=== PATIENT | female | born 1950 | race Caucasian/White ===

== ENCOUNTER 2019-12-01 00:30 | Outpatient (CLI) | payer OTHER, SELFPAY ==
--- NOTE | 2019-12-01 13:15 | DI.NM_ITS ---
APPROVED REPORT Exam: Pharmacologic Patient Location: Out-Patient Room/Bed: Stress Nurse: Elva Ramos RN BMI: 31.83 Baseline Rhythm: Sinus Bradycardia Indications: Dyspnea. Note patient is a poor historian. Medical History Medical History: GERD, Bleeding ulcers, rheumatoid arthritis. Cardiac Medications: Metoprolol succinate/ Toprol XL, Aspirin., Allergies: Levaquin, Penicillin. Cardiac Risk Factors: FHX of CAD, HTN Previous Cardiac Procedures: None Pretest Chest Pain Characteristics: None Exercise History: Sedentary Physical Disabilities: Legs Lung Sounds: Clear to auscultation Heart Sounds: Regular Stress Test Details Test: Pharmacologic stress testing performed using 0.4 mg of regadenoson per 5 mL given IV over 10 s econds. Reason for pharmacologic stress test: physical limitation. Nuclear Acquisition: Rest Tc-99m/Stress Tc-99m 1 day Rest Isotope: Tc-99m Sestamibi. Dose: 11.5 Date: 12/01/2019 Injection Time: 1145 Stress Isotope: Tc-99m Sestamibi. Dose: 37.0 Date: 12/01/2019 Injection Time: 1340 HR Resting HR Supine: 58 bpm Max Heart Rate (APMHR): 151 bpm Target HR (85% APMHR): 128 bpm Max HR Achieved: 85 bpm % of APMHR: 56 BP Resting BP Supine: 154/68 mmHg Max BP: 160/62 mmHg ECG Resting ECG: Sinus Bradycardia Stress ECG: Sinus Rhythm ST Change: Normal Arrhythmia: None Recovery ECG: Sinus Rhythm Recovery ST Change: Normal Recovery Arrhythmia: None Clinical Stress Symptoms: None Stress ECG Conclusion 1. Is a pharmacological stress test. 2. EKG portion of this exam is nondiagnostic. Stress Test Summary STAGE HR BP Symptoms NOTES Supine 58 154/68 1 min post Lexiscan injection 79 160/62 3 min post Lexiscan injection 79 158/60 6 min post Lexiscan injection 68 154/66 MPI Conclusion Patient's ejection fraction was 55% with stress. There were no wall motion abnormalities. There was no evidence of the ischemia on the imaging portion of the exam. This represents a normal SPECT stress test. Radiologist Interpretation Radiologist Interpretation by: Pradeep De Dios MD Interpretation Date/Time: 12/02/2019 08:35:19
[2019-12-01] MEDS: Regadenoson 0.4 MG/5 ML SYR IVP (14:15)
== END 2019-12-01 00:50 ==
PROVIDERS: PCP Internal Medicine; Visit Provider Internal Medicine Interventional Cardiology
DX: R06.09 Other forms of dyspnea (principal); K21.9 Gastro-esophageal reflux disease without esophagitis; Z82.49 Family history of ischemic heart disease and other diseases of the circulatory system
CPT/HCPCS: 78452; 93016; 93018; 93017; J2785